=== PATIENT | male | born 1955 | race Caucasian/White ===

== ENCOUNTER 2020-12-04 16:19 | Inpatient (IN) | payer OTHER ==
[2020-12-04 19:28] VITALS: BMI 19.8
[2020-12-04] MEDS ORDERED: ACETAMINOPHEN 325 MG TABLET (FP) PO PRN ×2 (20:11)
[2020-12-04] MEDS ORDERED: MAG HYDROX/AL HYDROX/SIMETH 30 ML UNIT-DOSE CUP PO PRN (20:11)
[2020-12-04] MEDS ORDERED: MENTHOL/PHENOL 1 EACH UD MM PRN (20:11)
[2020-12-04] MEDS ORDERED: hydrOXYzine PAMOATE 25 MG CAPSULE (FP) PO PRN (20:11)
[2020-12-04] MEDS ORDERED: BISMUTH SUBSALICYLATE 524 MG/30 ML PO PRN (20:11)
[2020-12-04] MEDS ORDERED: NICOTINE POLACRILEX 2 MG GUM BUC PRN (20:11)
[2020-12-04] MEDS ORDERED: MAGNESIUM CITRATE 300 ML BOTTLE PO PRN (20:11)
[2020-12-04] MEDS ORDERED: ONDANSETRON *ODT* 4 MG TABLET SL PRN (20:11)
[2020-12-04] MEDS ORDERED: MAGNESIUM HYDROX 2400MG/30ML ORAL SUSPENSION 30 ML CUP PO PRN (20:11)
[2020-12-04] MEDS: SULFAMETHOXAZOLE/TRIMETHOPRIM 800MG/160MG D.S. TABLET PO SCH (22:52)
[2020-12-04] MEDS: BACITRACIN 0.9 GM PACKET TP SCH (22:52)
[2020-12-04] MEDS: THIAMINE HCL 100 MG TABLET (FP) PO SCH (22:52)
[2020-12-04] MEDS: MELATONIN 5 MG TABLETS PO SCH (22:52)
[2020-12-05] MEDS ORDERED: diazePAM 5 MG TABLET PO PRN (09:27)
[2020-12-05] MEDS: METHADONE HCL 40 MG DISPERSABLE TABLET PO SCH (10:04)
[2020-12-05] MEDS: diazePAM 5 MG TABLET PO SCH ×3 (10:05→22:41)
[2020-12-05] MEDS: PRENATAL VITAMINS W/ FOLIC ACID TABLET (FP) PO SCH (10:06)
[2020-12-05] MEDS: SULFAMETHOXAZOLE/TRIMETHOPRIM 800MG/160MG D.S. TABLET PO SCH ×2 (10:06→22:41)
[2020-12-05] MEDS: BACITRACIN 0.9 GM PACKET TP SCH ×2 (10:07→22:43)
[2020-12-05] MEDS: THIAMINE HCL 100 MG TABLET (FP) PO SCH (22:41)
[2020-12-05] MEDS: MELATONIN 5 MG TABLETS PO SCH (22:41)
[2020-12-05] MEDS: IBUPROFEN 400 MG TABLET (FP) PO PRN (22:43)
[2020-12-06] MEDS: diazePAM 5 MG TABLET PO SCH ×4 (06:06→22:56)
[2020-12-06] MEDS: METHADONE HCL 40 MG DISPERSABLE TABLET PO SCH (10:05)
[2020-12-06] MEDS: PRENATAL VITAMINS W/ FOLIC ACID TABLET (FP) PO SCH (10:07)
[2020-12-06] MEDS: BACITRACIN 0.9 GM PACKET TP SCH ×2 (10:08→22:55)
[2020-12-06] MEDS: SULFAMETHOXAZOLE/TRIMETHOPRIM 800MG/160MG D.S. TABLET PO SCH ×2 (10:08→22:56)
[2020-12-06] MEDS: IBUPROFEN 400 MG TABLET (FP) PO PRN (10:09)
[2020-12-06 10:44] LABS: CALCIUM 8.6 mg/dL (8.5-10.1)
[2020-12-06 10:45] LABS: ALBUMIN 2.7 g/dl (3.4-5.0); BLOOD UREA NITROGEN 14.8 mg/dL (7-18)
[2020-12-06 10:48] LABS: CREATININE 0.4 mg/dL (0.55-1.3)
[2020-12-06 10:50] LABS: BILIRUBIN,TOTAL 0.2 mg/dL (0.2-1); HEMATOCRIT 38.6 % (35.4-49); HEMOGLOBIN 12.8 GM/dL (11.7-16.9); MCH 34.6 pg (25.7-33.7); MCHC 33.1 g/dl (32.0-35.9); MEAN CELL VOLUME 104.3 fl (80-96); MEAN PLT VOLUME 8.4 fl (7.5-11.1); PLATELET COUNT 170 10^3/uL (134-434); RDW 14.3 % (11.9-15.9); TOT PROT 6.2 g/dl (6.4-8.2); WHITE BLOOD COUNT 3.5 K/mm3 (4.0-10.0)
[2020-12-06] MEDS: THIAMINE HCL 100 MG TABLET (FP) PO SCH (22:56)
[2020-12-06] MEDS: MELATONIN 5 MG TABLETS PO SCH (22:56)
[2020-12-07] MEDS: METHADONE HCL 40 MG DISPERSABLE TABLET PO SCH (05:43)
[2020-12-07] MEDS ORDERED: diazePAM 5 MG TABLET PO SCH (06:00)
[2020-12-07 09:28] VITALS: BP 161/99; PULSE 94; TEMP 96.2
[2020-12-07] MEDS: BACITRACIN 0.9 GM PACKET TP SCH (10:37)
[2020-12-07] MEDS: PRENATAL VITAMINS W/ FOLIC ACID TABLET (FP) PO SCH (10:37)
[2020-12-07] MEDS: SULFAMETHOXAZOLE/TRIMETHOPRIM 800MG/160MG D.S. TABLET PO SCH (10:37)
[2020-12-08] MEDS ORDERED: diazePAM 5 MG TABLET PO SCH (06:00)
[2020-12-09] MEDS ORDERED: diazePAM 5 MG TABLET PO ONE (06:00)
== END 2020-12-07 12:08 | disposition left against medical advice (07) | DRG 770 ==
LOC: YASAS 16:19 → UNDOADMIN 20:07 → Y3N 20:07
PROVIDERS: ADMIT Allergy & Immunology; ATTEND Allergy & Immunology
PROC: HZ2ZZZZ Detoxification Services for Substance Abuse Treatment (ICD-10-PCS; principal; 2020-12-04)
DX: F10.230 Alcohol dependence with withdrawal, uncomplicated (principal); F11.20 Opioid dependence, uncomplicated; F17.210 Nicotine dependence, cigarettes, uncomplicated; I10 Essential (primary) hypertension; M40.209 Unspecified kyphosis, site unspecified; L97.928 Non-pressure chronic ulcer of unspecified part of left lower leg with other specified severity; L97.918 Non-pressure chronic ulcer of unspecified part of right lower leg with other specified severity; R26.89 Other abnormalities of gait and mobility; Z99.89 Dependence on other enabling machines and devices; Z59.0 Homelessness
CPT/HCPCS: 36415; 80053; 85027; 86780; C9803; U0003; U0005

== ENCOUNTER 2023-07-24 13:53 | Inpatient (IN) | payer OTHER ==
[2023-07-24] MEDS ORDERED: BENZOCAINE/MENTHOL (CHLORASEPTIC ) LOZENGE MM PRN (16:01)
[2023-07-24] MEDS ORDERED: LOPERAMIDE HCL 2 MG CAPSULE PO PRN (16:01)
[2023-07-24] MEDS ORDERED: DICYCLOMINE HCL 10 MG CAPSULE PO PRN (16:01)
[2023-07-24] MEDS ORDERED: NICOTINE POLACRILEX 2 MG GUM BUC PRN (16:01)
[2023-07-24] MEDS ORDERED: ACETAMINOPHEN 325 MG TABLET (FP) PO PRN ×2 (16:01)
[2023-07-24] MEDS ORDERED: guaiFENesin 600 MG TABLET.ER (FP) PO PRN (16:01)
[2023-07-24] MEDS ORDERED: ONDANSETRON *ODT* 4 MG TABLET SL PRN (16:01)
[2023-07-24] MEDS ORDERED: chlordiazePOXIDE HCL 25 MG CAPSULE PO PRN (16:01)
[2023-07-24] MEDS ORDERED: NALOXONE HCL 0.4 MG/ML VIAL IM PRN (16:01)
[2023-07-24] MEDS ORDERED: BENZONATATE 200 MG CAPSULE PO PRN (16:01)
[2023-07-24] MEDS ORDERED: BISMUTH SUBSALICYLATE 524 MG/30 ML PO PRN (16:01)
[2023-07-24] MEDS ORDERED: NALOXONE HCL (KLOXXADO) 8 MG SPRAY NS PRN (16:01)
[2023-07-24] MEDS ORDERED: POLYETHYLENE GLYCOL (HEALTHYLAX) 3350 17 GM PACKET PO PRN (16:01)
[2023-07-24] MEDS ORDERED: MAG HYDROX/AL HYDROX/SIMETH 30 ML UNIT-DOSE CUP PO PRN (16:01)
[2023-07-24] MEDS ORDERED: IBUPROFEN 400 MG TABLET (FP) PO PRN (16:01)
[2023-07-24] MEDS ORDERED: MAGNESIUM HYDROX 2400MG/30ML ORAL SUSPENSION 30 ML CUP PO PRN (16:01)
[2023-07-24 16:14] VITALS: BMI 17.4
[2023-07-24] MEDS: NICOTINE 7 MG/24 HOURS TOPICAL PATCH TD SCH (17:13)
[2023-07-24] MEDS: chlordiazePOXIDE HCL 25 MG CAPSULE PO SCH (17:14)
[2023-07-24] MEDS ORDERED: ALBUTEROL SO4 HFA INHALER IH PRN (17:52)
[2023-07-24] MEDS: amLODIPine BESYLATE 5 MG TABLET (FP) PO ONE (18:47)
[2023-07-24] MEDS: LIDOCAINE 5% TOPICAL PATCH TP SCH (19:02)
[2023-07-24] MEDS: PRENATAL VITAMINS W/ FOLIC ACID TABLET (FP) PO SCH (19:04)
[2023-07-24] MEDS: LIDOCAINE PATCH REMOVAL MC SCH (22:17)
[2023-07-24] MEDS: hydrOXYzine PAMOATE 25 MG CAPSULE (FP) PO PRN (22:18)
[2023-07-24] MEDS: MELATONIN 5 MG TABLETS PO SCH (22:18)
[2023-07-24] MEDS: METHOCARBAMOL 500 MG TABLET PO PRN (22:18)
[2023-07-24] MEDS: THIAMINE HCL 100 MG TABLET (FP) PO SCH (22:19)
[2023-07-25 10:40] LABS: HEMATOCRIT 37.6 % (35.4-49); HEMOGLOBIN 12.8 GM/dL (11.7-16.9); MCH 36.2 pg (25.7-33.7); MCHC 34.1 g/dl (32.0-35.9); MEAN CELL VOLUME 106.4 fl (80-96); MEAN PLT VOLUME 8.9 fl (7.5-11.1); PLATELET COUNT 150 10^3/uL (134-434); RBC 3.53 M/mm3 (4.00-5.60); RDW 14.8 % (11.9-15.9); WHITE BLOOD COUNT 6.1 K/mm3 (4.0-10.0)
[2023-07-25] MEDS: chlordiazePOXIDE HCL 25 MG CAPSULE PO SCH (10:59)
[2023-07-25 12:16] LABS: POTASSIUM 3.6 mmol/L (3.5-5.1)
[2023-07-25 12:21] LABS: ALBUMIN 3.4 g/dl (3.4-5.0); BLOOD UREA NITROGEN 6.6 mg/dL (7-18); CALCIUM 9.5 mg/dL (8.5-10.1)
[2023-07-25 12:24] LABS: CREATININE 0.6 mg/dL (0.55-1.3)
[2023-07-25 12:26] LABS: TOT PROT 7.7 g/dl (6.4-8.2)
[2023-07-25] MEDS: IBUPROFEN 600 MG TABLET (FP) PO PRN (17:21)
[2023-07-26] MEDS: chlordiazePOXIDE HCL 25 MG CAPSULE PO SCH (05:54)
[2023-07-26 11:53] LABS: POTASSIUM 3.3 mmol/L (3.5-5.1)
[2023-07-26 12:08] LABS: ALBUMIN 2.9 g/dl (3.4-5.0); CREATININE 0.6 mg/dL (0.55-1.3)
[2023-07-26 12:09] LABS: BLOOD UREA NITROGEN 19.3 mg/dL (7-18)
[2023-07-26 12:10] LABS: BILIRUBIN,TOTAL 0.6 mg/dL (0.2-1); TOT PROT 6.5 g/dl (6.4-8.2)
[2023-07-26 12:11] LABS: CALCIUM 8.4 mg/dL (8.5-10.1)
[2023-07-26] MEDS: LACTULOSE 20 GM/30 ML UDC (FOR ORAL USE ONLY) PO SCH (13:59)
[2023-07-26] MEDS: POTASSIUM CHLORIDE ORAL LIQUID 20 MEQ/15 ML PO ONE ×3 (14:14→22:50)
[2023-07-27] MEDS ORDERED: chlordiazePOXIDE HCL 10 MG CAPSULE PO PRN
[2023-07-27] MEDS: chlordiazePOXIDE HCL 10 MG CAPSULE PO SCH (05:56)
[2023-07-27 13:12] VITALS: RESP 16
[2023-07-27] MEDS: methaDONE HCL 10 MG TABLET PO ONE ×2 (18:23→18:24)
[2023-07-27] MEDS: methaDONE 80 MG, methaDONE 10 MG PO ONE (18:24)
[2023-07-27] MEDS ORDERED: methaDONE HCL 10 MG TABLET PO ONE (20:00)
[2023-07-28] MEDS: chlordiazePOXIDE HCL 10 MG CAPSULE PO SCH (05:57)
[2023-07-28] MEDS ORDERED: methaDONE 80 MG, methaDONE 20 MG PO SCH (06:00)
[2023-07-28] MEDS ORDERED: methaDONE HCL 10 MG TABLET PO SCH (06:00)
[2023-07-29] MEDS: chlordiazePOXIDE HCL 10 MG CAPSULE PO ONE (06:00)
[2023-07-29 09:52] VITALS: BP 120/84; PULSE 105; TEMP 97.5
== END 2023-07-29 13:37 | disposition home or self-care (01) | DRG 895 ==
LOC: YASAS 13:53 → Y6N 16:52
PROVIDERS: ADMIT Allergy & Immunology; ATTEND Surgery
PROC: HZ42ZZZ Group Counseling for Substance Abuse Treatment, Cognitive-Behavioral (ICD-10-PCS; principal; 2023-07-24)
DX: F10.230 Alcohol dependence with withdrawal, uncomplicated (principal); F11.20 Opioid dependence, uncomplicated; E72.20 Disorder of urea cycle metabolism, unspecified; F17.210 Nicotine dependence, cigarettes, uncomplicated; E87.6 Hypokalemia; I10 Essential (primary) hypertension; J45.909 Unspecified asthma, uncomplicated; M54.50 Low back pain, unspecified; G89.29 Other chronic pain; Z99.89 Dependence on other enabling machines and devices; Z28.310 Unvaccinated for COVID-19; Z28.9 Immunization not carried out for unspecified reason
CPT/HCPCS: 36415; 80053; 80305; 82140; 84132; 85027; 86780; 87635; 87811; 93005; 93010

== ENCOUNTER 2023-09-11 13:21 | Emergency (ER) | payer OTHER ==
[2023-09-11] MEDS: MIDAZOLAM HCL 2 MG/2 ML SINGLE DOSE VIAL IM ONE (13:35)
[2023-09-11] MEDS ORDERED: MIDAZOLAM HCL 2 MG/2 ML SINGLE DOSE VIAL ONE (13:36)
[2023-09-11] MEDS ORDERED: NALOXONE (NARCAN) HCL 4 MG/0.1 ML SPRAY NS ONE (13:43)
[2023-09-11] MEDS ORDERED: NALOXONE HCL 0.4 MG/ML VIAL ONE ×2 (13:45→17:38)
[2023-09-11] MEDS: MIDAZOLAM HCL 2 MG/2 ML SINGLE DOSE VIAL IVPUSH ONE (14:00)
[2023-09-11 14:39] VITALS: RESP 18; BMI 25.0
[2023-09-11] MEDS: NALOXONE HCL 0.4 MG/ML VIAL IM ONE ×2 (14:41→17:44)
[2023-09-11 20:11] VITALS: BP 121/82; PULSE 73; TEMP 97.8
== END 2023-09-11 20:57 | disposition home or self-care (01) ==
LOC: JER 13:21
PROC: 3E023GC Introduction of Other Therapeutic Substance into Muscle, Percutaneous Approach (ICD-10-PCS; principal; 2023-09-11)
PROC: 3E023GC Introduction of Other Therapeutic Substance into Muscle, Percutaneous Approach (ICD-10-PCS; 2023-09-11)
PROC: 3E023GC Introduction of Other Therapeutic Substance into Muscle, Percutaneous Approach (ICD-10-PCS; 2023-09-11)
DX: F11.929 Opioid use, unspecified with intoxication, unspecified (principal); F10.929 Alcohol use, unspecified with intoxication, unspecified
CPT/HCPCS: 82962; 99284-25

== ENCOUNTER 2023-09-11 21:30 | Inpatient (IN) | payer OTHER ==
[2023-09-11 22:14] VITALS: BMI 24.4
[2023-09-11] MEDS ORDERED: ALBUTEROL SO4 HFA INHALER IH PRN (23:22)
[2023-09-11] MEDS ORDERED: ONDANSETRON *ODT* 4 MG TABLET SL PRN (23:23)
[2023-09-11] MEDS ORDERED: IBUPROFEN 400 MG TABLET (FP) PO PRN (23:23)
[2023-09-11] MEDS ORDERED: LOPERAMIDE HCL 2 MG CAPSULE PO PRN (23:23)
[2023-09-11] MEDS ORDERED: MAG HYDROX/AL HYDROX/SIMETH 30 ML UNIT-DOSE CUP PO PRN (23:23)
[2023-09-11] MEDS ORDERED: MAGNESIUM HYDROX 2400MG/30ML ORAL SUSPENSION 30 ML CUP PO PRN (23:23)
[2023-09-11] MEDS ORDERED: BENZONATATE 200 MG CAPSULE PO PRN (23:23)
[2023-09-11] MEDS ORDERED: BISMUTH SUBSALICYLATE 524 MG/30 ML PO PRN (23:23)
[2023-09-11] MEDS ORDERED: NALOXONE HCL 0.4 MG/ML VIAL IM PRN (23:23)
[2023-09-11] MEDS ORDERED: IBUPROFEN 600 MG TABLET (FP) PO PRN (23:23)
[2023-09-11] MEDS ORDERED: NICOTINE POLACRILEX 2 MG LOZENGE BC PRN (23:23)
[2023-09-11] MEDS ORDERED: guaiFENesin 600 MG TABLET.ER (FP) PO PRN (23:23)
[2023-09-11] MEDS ORDERED: POLYETHYLENE GLYCOL (HEALTHYLAX) 3350 17 GM PACKET PO PRN (23:23)
[2023-09-11] MEDS ORDERED: DICYCLOMINE HCL 10 MG CAPSULE PO PRN (23:23)
[2023-09-11] MEDS ORDERED: NALOXONE HCL (KLOXXADO) 8 MG SPRAY NS PRN (23:23)
[2023-09-11] MEDS ORDERED: BENZOCAINE/MENTHOL (CHLORASEPTIC ) LOZENGE MM PRN (23:23)
[2023-09-11] MEDS ORDERED: ALBUTEROL SO4 0.083% IH SOL 2.5 MG/3 ML VIAL.NEB. NEB ONE (23:29)
[2023-09-11] MEDS: ALBUTEROL SO4 0.083% IH SOL 2.5 MG/3 ML VIAL.NEB. NEB PRN (23:32)
[2023-09-12] MEDS: LIDOCAINE PATCH REMOVAL MC SCH (01:22)
[2023-09-12] MEDS: cloNIDine HCL 0.1 MG TABLET PO ONE (01:24)
[2023-09-12] MEDS: ALBUTEROL SULFATE 0.021% (0.63 MG/3 ML) VIAL.NEB NEB ONE (01:25)
[2023-09-12] MEDS: ACETAMINOPHEN 325 MG TABLET (FP) PO PRN (03:43)
[2023-09-12] MEDS: amLODIPine BESYLATE 5 MG TABLET (FP) PO ONE ×2 (06:48→10:15)
[2023-09-12] MEDS ORDERED: LORazepam 1 MG TABLET PO PRN (08:16)
[2023-09-12] MEDS ORDERED: methaDONE HCL 10 MG TABLET PO SCH (08:30)
[2023-09-12] MEDS: methaDONE 80 MG, methaDONE 20 MG PO SCH (08:54)
[2023-09-12] MEDS: PRENATAL VITAMINS W/ FOLIC ACID TABLET (FP) PO SCH (10:05)
[2023-09-12] MEDS: LORazepam 2 MG TABLET PO SCH (10:05)
[2023-09-12] MEDS: NICOTINE 14 MG/24 HOURS TOPICAL PATCH TD SCH (10:05)
[2023-09-12] MEDS: LIDOCAINE 5% TOPICAL PATCH TP SCH (10:15)
[2023-09-12 12:10] LABS: HEMATOCRIT 38.5 % (35.4-49); HEMOGLOBIN 12.5 GM/dL (11.7-16.9); MCH 34.1 pg (25.7-33.7); MCHC 32.5 g/dl (32.0-35.9); MEAN PLT VOLUME 8.7 fl (7.5-11.1); PLATELET COUNT 153 10^3/uL (134-434); RBC 3.66 M/mm3 (4.00-5.60); WHITE BLOOD COUNT 6.5 K/mm3 (4.0-10.0)
[2023-09-12 12:28] LABS: CHLORIDE 99 mmol/L (98-107); POTASSIUM 3.7 mmol/L (3.5-5.1); SODIUM 136 mmol/L (136-145)
[2023-09-12 12:30] LABS: CALCIUM 8.8 mg/dL (8.5-10.1)
[2023-09-12 12:31] LABS: ALBUMIN 3.7 g/dl (3.4-5.0); ANION GAP 2 mmol/L (4-13); CO2 35 mmol/L (21-32); GLUCOSE,RANDOM 83 mg/dL (74-106)
[2023-09-12 12:34] LABS: CREATININE 0.5 mg/dL (0.55-1.3); SGOT/AST 187 U/L (15-37); SGPT/ALT 82 U/L (13-61)
[2023-09-12 12:36] LABS: TOT PROT 7.2 g/dl (6.4-8.2)
[2023-09-12 12:37] LABS: ALK PHOS 190 U/L (45-117)
[2023-09-12] MEDS: THIAMINE HCL 100 MG TABLET (FP) PO SCH (22:06)
[2023-09-12] MEDS: MELATONIN 5 MG TABLETS PO SCH (22:06)
[2023-09-13 09:49] VITALS: RESP 16
[2023-09-13] MEDS: amLODIPine BESYLATE 10 MG TABLET (FP) PO SCH (11:01)
[2023-09-13 13:49] VITALS: BP 165/105; PULSE 88; TEMP 98
[2023-09-14] MEDS ORDERED: LORazepam 1 MG TABLET PO SCH (05:00)
[2023-09-15] MEDS ORDERED: LORazepam 0.5 MG TABLET PO PRN
[2023-09-15] MEDS ORDERED: LORazepam 0.5 MG TABLET PO SCH (05:00)
[2023-09-16] MEDS ORDERED: LORazepam 0.5 MG TABLET PO ONE (05:00)
== END 2023-09-13 14:07 | disposition left against medical advice (07) | DRG 894 ==
LOC: YASAS 21:30 → Y3N 09-12 01:27
PROVIDERS: ADMIT Allergy & Immunology; ATTEND Allergy & Immunology
PROC: HZ2ZZZZ Detoxification Services for Substance Abuse Treatment (ICD-10-PCS; principal; 2023-09-12)
DX: F10.230 Alcohol dependence with withdrawal, uncomplicated (principal); F11.20 Opioid dependence, uncomplicated; F17.210 Nicotine dependence, cigarettes, uncomplicated; G47.00 Insomnia, unspecified; I10 Essential (primary) hypertension; J45.20 Mild intermittent asthma, uncomplicated; M40.209 Unspecified kyphosis, site unspecified; M54.50 Low back pain, unspecified; G89.29 Other chronic pain; Z99.89 Dependence on other enabling machines and devices; Z28.311 Partially vaccinated for COVID-19; Z28.9 Immunization not carried out for unspecified reason
CPT/HCPCS: 36415; 80053; 80305; 80307; 82140; 85027; 86780; 93005; 93010; 94640